=== PATIENT | female | born 1965 | race American Indian/Alaskan Native ===

== ENCOUNTER 2017-02-10 14:53 | Outpatient (CLI) | payer OTHER | END 2017-02-10 14:54 | disposition home or self-care (01) | LOC: LABHHL 14:53 | PROVIDERS: ATTEND Internal Medicine Gastroenterology | DX: Z12.11 Encounter for screening for malignant neoplasm of colon (principal) | CPT/HCPCS: 88305 ==

== ENCOUNTER 2017-04-01 11:18 | Emergency (ER) | payer OTHER ==
--- NOTE | 2017-04-01 12:47 | XRay Report ---
LEFT KNEE RADIOGRAPHS INDICATION: Left knee pain, swelling. History of arthritis. COMPARISON: 06/26/2014. FINDINGS: AP, lateral and oblique left knee radiographs demonstrate intact bony articulation. Patellofemoral narrowing with few degenerative lucencies superiorly suspected. Normal soft tissues without evidence of suprapatellar effusion. 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 Please correlate. Thank you for the opportunity to participate in this patient's care.
--- NOTE | 2017-04-01 13:37 | Emergency Department Report ---
ED Lower Extremity HPI - General Chief Complaint: Extremity Injury, Lower Stated Complaint: LT KNEE PAIN Time Seen by Provider: 04/01/17 13:26 Source: patient Mode of arrival: Ambulatory Limitations: No Limitations - History of Present Illness Initial Comments: left knee pain and aching x 2 months hx of same chronic for past 5 yrs, had arthroscopy then dx with arthritis MD Complaint: knee injury Onset/Timin -: month(s) (no new injury fall or trauma ) Injury: Knee: Left Place: home Severity: moderate Severity scale (0 -10): 4 Improves With: nothing Worsens With: weight bearing, movement, palpation Associated Symptoms: swelling, ambulatory. denies: numbness, tingling - Related Data Previous Rx's Medication Instructions Recorded Last Taken Type Ibuprofen [Motrin] 600 mg PO Q8H PRN #20 tablet 06/26/14 Unknown Rx methOCARBAMOL [Robaxin] 500 mg PO BID #14 tab 06/26/14 Unknown Rx Cyclobenzaprine [Flexeril] 10 mg PO TID PRN #30 tablet 04/01/17 Unknown Rx Diclofenac Sodium [Voltaren] 100 gm TP BID #1 tube 04/01/17 Unknown Rx Naproxen [Naprosyn TAB] 500 mg PO BID PRN #60 tablet 04/01/17 Unknown Rx Allergies Allergy/AdvReac Type Severity Reaction Status Date / Time codeine Allergy Hives Verified 04/01/17 11:51 povidone-iodine Allergy Itching Verified 04/01/17 11:51 [From Betadine] soap [From Betadine] Allergy Itching Verified 04/01/17 11:51 ED Review of Systems ROS: Stated complaint: LT KNEE PAIN Other details as noted in HPI Constitutional: denies: chills, fever Eyes: denies: eye pain, eye discharge, vision change ENT: denies: ear pain, throat pain Respiratory: denies: cough, shortness of breath, wheezing Cardiovascular: denies: chest pain, palpitations Endocrine: no symptoms reported Gastrointestinal: denies: abdominal pain, nausea, diarrhea Genitourinary: denies: urgency, dysuria, discharge Musculoskeletal: arthralgia. denies: back pain Skin: denies: rash, lesions Neurological: denies: headache, weakness, paresthesias Psychiatric: denies: anxiety, depression Hematological/Lymphatic: denies: easy bleeding, easy bruising ED Past Medical Hx - Past Medical History Hx Asthma: Yes Additional medical history: FIBROMYALGIA - Surgical History Additional Surgical History: hysterectomy, left knee surgery. SINUS SURGERY - Social History Smoking Status: Never Smoker Substance Use Type: None - Medications Home Medications: Home Medications Medication Instructions Recorded Confirmed Last Taken Type Ibuprofen [Motrin] 600 mg PO Q8H PRN #20 tablet 06/26/14 Unknown Rx methOCARBAMOL [Robaxin] 500 mg PO BID #14 tab 06/26/14 Unknown Rx Cyclobenzaprine [Flexeril] 10 mg PO TID PRN #30 tablet 04/01/17 Unknown Rx Diclofenac Sodium [Voltaren] 100 gm TP BID #1 tube 04/01/17 Unknown Rx Naproxen [Naprosyn TAB] 500 mg PO BID PRN #60 tablet 04/01/17 Unknown Rx ED Physical Exam - General Limitations: No Limitations General appearance: alert, in no apparent distress - Head Head exam: Present: atraumatic, normocephalic - Eye Eye exam: Present: normal appearance - ENT ENT exam: Present: mucous membranes moist - Neck Neck exam: Present: normal inspection - Respiratory Respiratory exam: Present: normal lung sounds bilaterally. Absent: respiratory distress - Cardiovascular Cardiovascular Exam: Present: regular rate, normal rhythm. Absent: systolic murmur, diastolic murmur, rubs, gallop - GI/Abdominal GI/Abdominal exam: Present: soft, normal bowel sounds - Rectal Rectal exam: Present: deferred - Extremities Exam Extremities exam: Present: normal inspection, full ROM, tenderness, normal capillary refill. Absent: joint swelling, calf tenderness - Expanded Lower Extremity Exam Left Hip exam: Present: normal inspection, full ROM Upper Leg exam: Present: normal inspection, full ROM Knee exam: Present: full ROM, tenderness, pain w/ pronation/supination, full knee extension. Absent: swelling, abrasion, laceration, ecchymosis, deformity, crepidus, dislocation, erythema, effusion, posterior draw sign, pain/laxity with valgus, pain/laxity with varus Lower Leg exam: Present: normal inspection, full ROM Ankle exam: Present: normal inspection, full ROM Foot/Toe exam: Present: normal inspection, full ROM Neuro vascular tendon exam: Present: no vascular compromise. Absent: pulse deficit, abnormal cap refill, motor deficit, sensory deficit, tendon deficit, extremity cold to touch, pallor, abnormal 2-point discrimination, decreased fine /light touch, foot drop, peroneal nerve deficit, significant pain with passive ROM of distal joint Gait: Positive: observed and normal - Back Exam Back exam: Present: normal inspection - Neurological Exam Neurological exam: Present: alert, oriented X3, CN II-XII intact, normal gait, reflexes normal. Absent: motor sensory deficit - Psychiatric Psychiatric exam: Present: normal affect, normal mood - Skin Skin exam: Present: warm, dry, intact, normal color. Absent: rash ED Course Vital Signs 04/01/17 04/01/17 11:46 14:08 Temperature 98.2 F Pulse Rate 103 H Respiratory 17 16 Rate Blood Pressure 116/83 O2 Sat by Pulse 100 Oximetry ED Lower Extremity MDM - Radiology Data Radiology results: report reviewed no fracture normal soft tissues - Medical Decision Making pt is a 51 y/o aaf with hx of fibromyalgia and chronic left knee pain presents for acute exacerbation of knee pain x 2 months including 5/10 aching and intermittent swelling pain is exacerbated by prolong standing walking and weight bearing pain is relieved by rest and elevation , exam: no drawer no swelling no catch no pop no click mild pain to supination pronation pt remains ambulatory , xray: no fracture normal soft tissue , plan: nsaids, muscle relaxant, knee exercises follow up with primary care doctor and ortho as currently seeing. pt verbalized agreement and understanding of same. repeat v/ s hr now 88 bp 142/74 pain decreased to 3/10 pt for dc to home at this time. pt is ambulatory gait steady with nad Critical care attestation.: If time is entered above; I have spent that time in minutes in the direct care of this critically ill patient, excluding procedure time. ED Disposition Clinical Impression: Chronic pain of left knee Strain of left knee Qualifiers: Encounter type: initial encounter Qualified Code(s): S86.912A - Strain of unspecified muscle(s) and tendon(s) at lower leg level, left leg, initial encounter Disposition: DC-01 TO HOME OR SELFCARE Is pt being admited?: No Does the pt Need Aspirin: No Condition: Good Instructions: Arthralgia (ED), Knee Exercises (GEN) Prescriptions: Cyclobenzaprine [Flexeril] 10 mg PO TID PRN #30 tablet PRN Reason: Muscle Spasm Diclofenac Sodium [Voltaren] 100 gm TP BID #1 tube Naproxen [Naprosyn TAB] 500 mg PO BID PRN #60 tablet PRN Reason: Pain Referrals: PRIMARY CARE,MD [Primary Care Provider] - 3-5 Days Forms: Work/School Release Form(ED) Time of Disposition: 14:34
[2017-04-01] MEDS ORDERED: TORADOL IM ONE (13:38)
[2017-04-01 14:44] VITALS: BP 121/80
== END 2017-04-01 14:43 | disposition home or self-care (01) ==
LOC: ED 11:18
DX: S76.912A Strain of unspecified muscles, fascia and tendons at thigh level, left thigh, initial encounter (principal); J45.909 Unspecified asthma, uncomplicated; Z88.8 Allergy status to other drugs, medicaments and biological substances; Z88.6 Allergy status to analgesic agent; Z91.048 Other nonmedicinal substance allergy status; X58.XXXA Exposure to other specified factors, initial encounter; Y93.89 Activity, other specified; Y92.89 Other specified places as the place of occurrence of the external cause; Y99.8 Other external cause status
CPT/HCPCS: 73562; 96372; 99283; J1885

== ENCOUNTER 2017-08-31 06:38 | Emergency (ER) | payer OTHER ==
[2017-08-31 07:43] VITALS: BP 138/84
--- NOTE | 2017-08-31 08:30 | XRay Report ---
RIGHT KNEE RADIOGRAPHS INDICATION: Right knee limping. COMPARISON: 06/26/2014. FINDINGS: AP, lateral and oblique right knee radiographs demonstrate intact bony articulation and appearance. Normal soft tissues without evidence of suprapatellar effusion, though light extrinsic possible clothing artifact noted. CONCLUSION: No acute right knee radiographic abnormality. Thank you for the opportunity to participate in this patient's care.
--- NOTE | 2017-08-31 08:30 | XRay Report ---
RIGHT HIP RADIOGRAPHS INDICATION: Right hip pain, limping. COMPARISON: 06/26/2014. FINDINGS: An AP pelvic radiograph with frog-leg projection of the right hip demonstrate intact articulation. Imaged bilateral SI and hip joints appear intact. Nonobstructive bowel gas pattern. Few extrinsic artifacts. CONCLUSION: No acute right hip radiographic abnormality. Thank you for the opportunity to participate in this patient's care.
[2017-08-31] MEDS ORDERED: TORADOL IM ONE (08:47)
[2017-08-31] MEDS ORDERED: ULTRAM PO ONE (09:02)
--- NOTE | 2017-08-31 09:12 | Emergency Department Report ---
ED Extremity Problem HPI - General Chief complaint: Extremity Injury, Lower Stated complaint: HIP AND KNEE PAIN Time Seen by Provider: 08/31/17 08:46 Source: patient Mode of arrival: Ambulatory Limitations: No Limitations - History of Present Illness Initial comments: 51F PMH Fibromylagia p/w acute on chronic hip pain. Denies fever, chills, nausea , vomiting, dysuria, hematuria. Danes any fall or direct trauma to hip. States she has had [ain similar to this frequently in the past. Pain currently 6/10, worse with exaggerated hip movement. MD Complaint: extremity pain Location: right -: Yes arthralgia Radiation: none Severity scale (0 -10): 5 Quality: aching, dull Consistency: constant Worsens with: nothing Associated Symptoms: denies other symptoms - Related Data Previous Rx's Medication Instructions Recorded Last Taken Type Ibuprofen [Motrin] 600 mg PO Q8H PRN #20 tablet 06/26/14 Unknown Rx methOCARBAMOL [Robaxin] 500 mg PO BID #14 tab 06/26/14 Unknown Rx Cyclobenzaprine [Flexeril] 10 mg PO TID PRN #30 tablet 04/01/17 Unknown Rx Diclofenac Sodium [Voltaren] 100 gm TP BID #1 tube 04/01/17 Unknown Rx Naproxen [Naprosyn TAB] 500 mg PO BID PRN #60 tablet 04/01/17 Unknown Rx traMADol [Ultram 50 MG tab] 50 mg PO Q6HR PRN #10 tablet 08/31/17 Unknown Rx Allergies Allergy/AdvReac Type Severity Reaction Status Date / Time codeine Allergy Hives Verified 04/01/17 11:51 povidone-iodine Allergy Itching Verified 04/01/17 11:51 [From Betadine] soap [From Betadine] Allergy Itching Verified 04/01/17 11:51 ED Review of Systems ROS: Stated complaint: HIP AND KNEE PAIN Other details as noted in HPI Constitutional: denies: chills, fever Eyes: denies: eye pain, eye discharge, vision change ENT: denies: ear pain, throat pain Respiratory: denies: cough, shortness of breath, wheezing Cardiovascular: denies: chest pain, palpitations Endocrine: no symptoms reported Gastrointestinal: denies: abdominal pain, nausea, diarrhea Genitourinary: denies: urgency, dysuria, discharge Musculoskeletal: as per HPI, arthralgia (chronic hip pain). denies: back pain, joint swelling Skin: denies: rash, lesions Neurological: denies: headache, weakness, paresthesias Psychiatric: denies: anxiety, depression Hematological/Lymphatic: denies: easy bleeding, easy bruising ED Past Medical Hx - Past Medical History Previous Medical History?: Yes Hx Asthma: Yes Additional medical history: FIBROMYALGIA, SINUS PROBLEMS, HIGH CHOLESTEROL - Surgical History Past Surgical History?: Yes Additional Surgical History: hysterectomy, left knee surgery. SINUS SURGERY - Social History Smoking Status: Never Smoker Substance Use Type: None - Medications Home Medications: Home Medications Medication Instructions Recorded Confirmed Last Taken Type Ibuprofen [Motrin] 600 mg PO Q8H PRN #20 tablet 06/26/14 Unknown Rx methOCARBAMOL [Robaxin] 500 mg PO BID #14 tab 06/26/14 Unknown Rx Cyclobenzaprine [Flexeril] 10 mg PO TID PRN #30 tablet 04/01/17 Unknown Rx Diclofenac Sodium [Voltaren] 100 gm TP BID #1 tube 04/01/17 Unknown Rx Naproxen [Naprosyn TAB] 500 mg PO BID PRN #60 tablet 04/01/17 Unknown Rx traMADol [Ultram 50 MG tab] 50 mg PO Q6HR PRN #10 tablet 08/31/17 Unknown Rx ED Physical Exam - General Limitations: No Limitations General appearance: alert, in no apparent distress - Head Head exam: Present: atraumatic, normocephalic - Eye Eye exam: Present: normal appearance, PERRL, EOMI - ENT ENT exam: Present: mucous membranes moist - Neck Neck exam: Present: normal inspection - Respiratory Respiratory exam: Present: normal lung sounds bilaterally. Absent: respiratory distress - Cardiovascular Cardiovascular Exam: Present: regular rate, normal rhythm. Absent: systolic murmur, diastolic murmur, rubs, gallop - GI/Abdominal GI/Abdominal exam: Present: soft, normal bowel sounds - Extremities Exam Extremities exam: Present: normal inspection - Expanded Lower Extremity Exam Right Hip exam: Present: normal inspection, full ROM (hip flexion/extension, internal and external rotation intact) Upper Leg exam: Present: normal inspection, full ROM Knee exam: Present: normal inspection, full ROM Lower Leg exam: Present: normal inspection, full ROM Ankle exam: Present: normal inspection, full ROM Foot/Toe exam: Present: normal inspection, full ROM Neuro vascular tendon exam: Present: no vascular compromise Gait: Positive: observed and normal - Back Exam Back exam: Present: normal inspection - Neurological Exam Neurological exam: Present: alert, oriented X3, CN II-XII intact, normal gait - Psychiatric Psychiatric exam: Present: normal affect, normal mood - Skin Skin exam: Present: warm, dry, intact, normal color. Absent: rash ED Course Vital Signs 08/31/17 07:34 Temperature 97.3 F L Pulse Rate 82 Respiratory 16 Rate Blood Pressure 138/84 O2 Sat by Pulse 99 Oximetry ED Medical Decision Making - Medical Decision Making A/P: Acute on chronic right hip pain 1-extremities unremarkable 2-pain likely secondary to fibromyalgia. xrays unremarkable 3-patient is on diclofenac duloxetine and gabapentin and follows with pain management 4- extremity neurovascularly intact patient is ambulatory. Critical care attestation.: If time is entered above; I have spent that time in minutes in the direct care of this critically ill patient, excluding procedure time. ED Disposition Clinical Impression: Chronic right hip pain Disposition: - TO HOME OR SELFCARE Is pt being admited?: No Does the pt Need Aspirin: No Condition: Stable Instructions: Fibromyalgia (ED), Arthralgia (ED) Prescriptions: traMADol [Ultram 50 MG tab] 50 mg PO Q6HR PRN #10 tablet PRN Reason: Pain Referrals: DAMIEN VIZCAINO MD [Primary Care Provider] - 3-5 Days Forms: Work/School Release Form(ED) Time of Disposition: 09:10
[2017-08-31] MEDS ORDERED: TORADOL ONE (09:54)
== END 2017-08-31 10:01 | disposition home or self-care (01) ==
LOC: ED 06:38
DX: M25.551 Pain in right hip (principal); G89.29 Other chronic pain; J45.909 Unspecified asthma, uncomplicated; E78.5 Hyperlipidemia, unspecified; Z88.6 Allergy status to analgesic agent; Z88.8 Allergy status to other drugs, medicaments and biological substances
CPT/HCPCS: 73502; 73562; 96372; 99283; J1885